=== PATIENT | female | born 1990 | race Caucasian/White ===

== ENCOUNTER 2016-10-27 13:34 | Emergency (ER) | payer OTHER ==
[~2016-10-27] VITALS: Ht 172.7 cm; Wt 68.4 kg
[~2016-10-27 13:34] MED LIST: ATARAX10 MG PO; ATIVAN2 MG PO; HYDRALAZINE HCL10 MG PO; KEFLEX500 MG PO; LEXAPRO5 MG PO; LIBRIUM25 MG PO; MACROBID100 MG PO; Micronor,Nor-Q-D,Err PO; Motrin PO; NAPROSYN500 MG PO; NO HOME MEDS; PERCOCET 5/31 TABLET; PERCOCET 5/31 TABLET PO; PROMETHAZINE HC25 M1 PO; TRAZODONE HCL50 MG PO; VITAMIN B-1100 MG PO
[2016-10-27 14:04] LABS: ADD MIUA? YES; BILIRUBIN NEGATIVE; BLOOD MODERATE; COLOR YELLOW ((YELLOW)); GLUCOSE (STRIP) NEGATIVE; KETONES 5; LEUKOCYTES TRACE; NITRITE NEGATIVE; PROTEIN (STRIP) NEGATIVE; SPECIFIC GRAVITY 1.002 (1.000-1.030); UROBILINOGEN 0.2 MG/DL (0.2-1.0)
[2016-10-27 14:17] LABS: BACTERIA RARE /HPF; EPITHELIAL CELLS 2+ /HPF; MUCUS NONE SEEN /LPF; RED BLOOD CELLS 0-5 /HPF (0-5); UCUL ADDED? NO; WHITE BLOOD CELLS 0-5 /HPF (0-5)
[2016-10-27 14:21] LABS: HEMATOCRIT 42.3 % (36.0-46.0); MCH 27.9 PG (29.0-34.0); MCHC 32.4 G/DL (30.0-36.0); MCV 86.2 FL (83-99); MEAN PLAT.VOLUME 9.4 uM^3 (9.5-12.4); PLATELET COUNT 352 K/uL (156-360); RBC DIS.WIDTH-CV 13.9 % (11.8-14.6); RBC DIS.WIDTH-SD 43.7 % (39-53); RED BLOOD COUNT 4.91 M/uL (3.80-5.20); WHITE BLOOD COUNT 9.4 K/uL (4.1-10.2)
[2016-10-27 14:30] LABS: CHLORIDE 101 mEq/L (99-109); POTASSIUM 3.7 mEq/L (3.7-5.4); SODIUM 141 mEq/L (136-147)
[2016-10-27 14:33] LABS: GLUCOSE 85 mg/dL (70-99)
[2016-10-27 14:34] LABS: ANION GAP 18 MEQ/L (2-14)
[2016-10-27 14:35] LABS: TOTAL BILIRUBIN 1.5 mg/dL (0.0-1.0)
[2016-10-27 14:36] LABS: ALKALINE PHOSPHATASE 88 IU/L (3-129); GFR ESTIMATE (CALCULATED) > 59 mL/min/; SERUM ETHYL ALCOHOL 327 mg/dL
[2016-10-27 14:38] LABS: UREA NITROGEN (BUN) 6 mg/dL (9-23)
[2016-10-27 14:40] LABS: LIPASE 14 U/L (1.0-51.0)
[2016-10-27 14:47] LABS: QUANTITATIVE HCG < 4.0 MIU/ML
[2016-10-27 18:05] VITALS: BP 107/59
== END 2016-10-27 18:29 | disposition home or self-care (01) ==
LOC: EME 13:34
PROVIDERS: Emergency Medicine
DX: K70.10 Alcoholic hepatitis without ascites (principal); F10.188 Alcohol abuse with other alcohol-induced disorder; F17.200 Nicotine dependence, unspecified, uncomplicated; Z88.8 Allergy status to other drugs, medicaments and biological substances; Z91.030 Bee allergy status
CPT/HCPCS: 74177; 80053; 81003; 83690; 84702; 85027; 99281; 99284; G0480; J1630; J2060; J2270; J2405; J7030

== ENCOUNTER 2017-01-02 14:26 | Emergency (ER) | payer OTHER ==
[~2017-01-02] VITALS: Ht 170.2 cm; Wt 64.0 kg
[2017-01-02 15:30] VITALS: BP 115/79
== END 2017-01-02 16:21 | disposition home or self-care (01) ==
LOC: EME 14:26
DX: F10.129 Alcohol abuse with intoxication, unspecified (principal); F17.200 Nicotine dependence, unspecified, uncomplicated; Z88.8 Allergy status to other drugs, medicaments and biological substances; Z91.030 Bee allergy status

== ENCOUNTER 2017-11-15 14:52 | Emergency (ER) | payer OTHER ==
[~2017-11-15] VITALS: Ht 172.7 cm; Wt 58.4 kg
[2017-11-15 16:58] LABS: APPEARANCE CLEAR ((CLEAR)); BILIRUBIN NEGATIVE; BLOOD LARGE; COLOR STRAW ((YELLOW)); GLUCOSE (STRIP) NEGATIVE; KETONES 20; LEUKOCYTES NEGATIVE; NITRITE POSITIVE; PROTEIN (STRIP) NEGATIVE; SPECIFIC GRAVITY 1.004 (1.000-1.030); UROBILINOGEN 0.2 MG/DL (0.2-1.0)
[2017-11-15 17:03] LABS: BACTERIA NONE SEEN /HPF; EPITHELIAL CELLS 1+ /HPF; MUCUS NONE SEEN /LPF; RED BLOOD CELLS 0-5 /HPF (0-5); WHITE BLOOD CELLS 0-5 /HPF (0-5)
[2017-11-15 17:06] LABS: HEMATOCRIT 41.6 % (36.0-46.0); HEMOGLOBIN 14.2 G/DL (11.9-15.5); MCH 29.8 PG (29.0-34.0); MCHC 34.1 G/DL (30.0-36.0); MCV 87.2 FL (83-99); PLATELET COUNT 360 K/uL (156-360); RBC DIS.WIDTH-CV 14.3 % (11.8-14.6); RBC DIS.WIDTH-SD 46.3 % (39-53); RED BLOOD COUNT 4.77 M/uL (3.80-5.20); WHITE BLOOD COUNT 11.7 K/uL (4.1-10.2)
[2017-11-15 17:08] LABS: AMPHETAMINE NEGATIVE (500 ng/mL); BARBITURATES NEGATIVE (200 ng/mL); BENZODIAZEPINES NEGATIVE (150 ng/mL); BUPRENORPHINE NEGATIVE (10 ng/mL); COCAINE NEGATIVE (150 ng/mL); METHADONE NEGATIVE (200 ng/mL); METHAMPHETAMINE NEGATIVE (500 ng/mL); OPIATES (MORPHINE) NEGATIVE (100 ng/mL); OXYCODONE NEGATIVE (100 ng/mL); PHENCYCLIDINE NEGATIVE (25 ng/mL); PROPOXYPHENE NEGATIVE (300 ng/mL); THC CANNABINOIDS PRESUMPTIVE POSITIVE (50 ng/mL); TRICYCLIC ANTIDEPRESSANTS NEGATIVE (300 ng/mL)
[2017-11-15 17:18] LABS: ALBUMIN 4.6 g/dL (3.2-4.8); CHLORIDE 103 mEq/L (99-109); POTASSIUM 3.6 mEq/L (3.7-5.4); SODIUM 145 mEq/L (136-147)
[2017-11-15 17:21] LABS: GLUCOSE 80 mg/dL (70-99)
[2017-11-15 17:23] LABS: TOTAL BILIRUBIN 0.5 mg/dL (0.0-1.0)
[2017-11-15 17:24] LABS: SERUM ETHYL ALCOHOL 342 mg/dL
[2017-11-15 17:25] LABS: ALKALINE PHOSPHATASE 81 IU/L (3-129); CREATININE 0.7 mg/dL (0.6-1.3); GFR ESTIMATE (CALCULATED) > 59 mL/min/
[2017-11-15 17:26] LABS: AST (GOT) 36 IU/L (2-34)
[2017-11-15 17:27] LABS: UREA NITROGEN (BUN) 9 mg/dL (9-23)
[2017-11-15 17:28] LABS: ACETAMINOPHEN (TYLENOL) < 10 mcg/mL (10-30); ALT (GPT) 29 IU/L (3-49); SALICYLATE < 5.0 MG/DL (15-30)
[2017-11-16 03:40] VITALS: BP 131/75
== END 2017-11-16 03:44 | disposition home or self-care (01) ==
LOC: EME 14:52
PROVIDERS: Emergency Medicine
DX: R45.1 Restlessness and agitation (principal); F10.129 Alcohol abuse with intoxication, unspecified; F32.9 Major depressive disorder, single episode, unspecified; F12.10 Cannabis abuse, uncomplicated; N39.0 Urinary tract infection, site not specified; R94.31 Abnormal electrocardiogram [ECG] [EKG]; F17.200 Nicotine dependence, unspecified, uncomplicated; Y90.8 Blood alcohol level of 240 mg/100 ml or more; Z88.8 Allergy status to other drugs, medicaments and biological substances; Z91.030 Bee allergy status
CPT/HCPCS: 71045; 80053; 80173 90; 80175 90; 81003; 82140; 84999; 85027; 93005; 99281; 99285; G0480; J1630; J2060

== ENCOUNTER 2018-02-04 14:55 | Emergency (ER) | payer OTHER ==
[~2018-02-04] VITALS: Ht 170.2 cm; Wt 57.4 kg
[2018-02-04 16:17] VITALS: BP 130/51
== END 2018-02-04 16:12 | disposition left against medical advice (07) ==
LOC: EME 14:55
DX: F10.239 Alcohol dependence with withdrawal, unspecified (principal); R25.1 Tremor, unspecified; Z53.21 Procedure and treatment not carried out due to patient leaving prior to being seen by health care provider